=== PATIENT | male | born 2005 | race American Indian/Alaskan Native ===

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

== ENCOUNTER 2025-04-17 19:33 | Emergency (ER) | payer MEDICAID, SELFPAY ==
[2025-04-17 19:35] VITALS: BP 101/63; PULSE 92; RESP 17; TEMP 36.9; O2SAT 96
--- NOTE | 2025-04-17 19:39 | PD.EDSEIZ ---
ED Seizures RME/HPI General Chief Complaint: Seizure Stated Complaint: seizure Time Seen by Provider: 04/17/25 19:37 Arrival date/time: 04/17/25 19:33 Mode of arrival: EMS Limitations: no limitations RME / HPI RME / HPI Narrative: 89-year-old male with history of epilepsy is here today after he had a seizure. He was brought in by EMS. Patient reportedly had a seizure while at home that was witnessed. He also has a headache now. He has blood on his tongue. He states he missed his evening dose of Keppra. Related Data Home Medications ?Medication ?Instructions ?Recorded ?Confirmed levetiracetam 500 mg tablet 3,000 mg PO BID 01/03/20 07/09/24 (Keppra) oxcarbazepine 600 mg tablet 750 mg PO BID 09/24/20 07/09/24 perampanel 12 mg tablet (Fycompa) 12 mg PO HS 07/09/24 07/09/24 Allergies Allergy/AdvReac Type Severity Reaction Status Date / Time No Known Allergies Allergy Verified 07/05/23 00:30 ED Exam General Limitations: Present no limitations General appearance: Present alert and in no apparent distress Head Head exam: Present atraumatic Eye Eye exam: Present normal appearance, PERRL and EOMI ENT ENT exam: Present normal exam, normal oropharynx, mucous membranes moist and other (Dried blood in the oromucosa, no dental injury) Neck Neck exam: Present normal inspection, full ROM and trachea midline Chest Chest inspection: Present normal inspection and symmetric chest wall rise Respiratory Respiratory exam: Present normal lung sounds bilaterally Cardiovascular Cardiovascular exam: Present regular rate, normal rhythm and normal heart sounds Abdominal Exam Abdominal exam: Present soft and normal bowel sounds Extremities Exam Extremities exam: Present normal inspection and full ROM Back Exam Back exam: Present normal inspection and full ROM Neurological Exam Neurological exam: Present alert and oriented X3 Psychiatric Psychiatric exam: Present normal affect and normal mood Skin Skin exam: Present warm, dry, intact and normal color Course Course Course Narrative: At 2001, patient received his dose of Keppra. At 2003, patient had a witnessed seizure that lasted approximately 2 minutes. 4 mg of Ativan was given. Quality Measures none Orders Category Date Time Status IV [Insert IV] NOW Care 04/17/25 20:22 Active CBC Stat Lab 04/17/25 19:52 Completed CMP [Comprehensive Metabolic Panel] Stat Lab 04/17/25 19:52 Completed Acetaminophen Tab [Tylenol Tab] Med 04/17/25 19:40 Discontinued 650 mg PO X1 ONE LORazepam [Ativan Inj] Med 04/17/25 20:09 Discontinued 4 mg IVP X1 ONE LORazepam [Ativan Inj] Med 04/17/25 20:00 Discontinued 6 mg .ROUTE .STK-MED ONE levETIRAcetam INJ [Keppra Inj] Med 04/17/25 20:01 Discontinued 1,000 mg .ROUTE .STK-MED ONE levETIRAcetam [Keppra] Med 04/17/25 19:37 Discontinued 1,000 mg PO X1 ONE Vital Signs Vital signs: Vital Signs Temperature 98.4 F 04/17/25 19:35 Pulse Rate 92 04/17/25 19:35 Respiratory Rate 17 04/17/25 19:35 Blood Pressure 101/63 04/17/25 19:35 Pulse Oximetry (%) 96 04/17/25 19:35 Oxygen Delivery Method Room Air 04/17/25 19:35 Seizure MDM Narrative MDM Narrative:: 89-year-old male with history of epilepsy is here today after he had a seizure. He was brought in by EMS. Patient reportedly had a seizure while at home that was witnessed. He also has a headache now. He has blood on his tongue. He states he missed his evening dose of Keppra. Patient was later moved to an exam room after he was initially evaluated in ambulance bay. At approximately 2000 p.m., patient received 1000 mg of Keppra, approximately 2 to 3 minutes afterwards, patient had a seizure lasted 2 to 3 minutes. He was given 4 mg of Ativan. Serial examinations were performed and patient had no further seizure activity. His mother later arrived and has been at bedside. Patient has been resting comfortably in the emergency room. He will be discharged when he can safely ambulate. Mother states he has a follow-up appointment this month with his neurologist. Patient data External records reviewed:: None Clinical information provided by:: patient, EMS and family Social determinants that could affect healthcare access:: none Patient has the following chronic illnesses:: Epilepsy How is presenting disease/condition affected by chronic disease/condition?: exacerbated by Evaluation data The following diagnostics were reviewed and interpreted by me:: other (specify) Lab and/or radiology exams considered but not ordered:: n/a Interpretation Summary: n/a Medications / Prescriptions Medications or Prescriptions considered but not ordered:: n/a Medication administrations:: Medication Administration History Discontinued Medications Acetaminophen (Acetaminophen 325 Mg Tablet) 650 mg PO X1 ONE Stop: 04/17/25 19:41 Last Admin: 04/17/25 20:14 Dose: Not Given Documented By: ONUR Non-Admin Reason: Unable to Swallow Levetiracetam (Levetiracetam 250 Mg Tablet) 1,000 mg PO X1 ONE Stop: 04/17/25 19:38 Last Admin: 04/17/25 20:02 Dose: 1,000 mg Documented By: ONUR Levetiracetam (Levetiracetam Inj 100 Mg/Ml Vial 5ml) Confirm Administered Dose 1,000 mg .ROUTE .STK-MED ONE Stop: 04/17/25 20:02 Last Admin: 04/17/25 20:23 Dose: Not Given Documented By: ONUR Non-Admin Reason: Override Medication Lorazepam (Lorazepam 2 Mg/Ml Vial) 4 mg IVP X1 ONE Stop: 04/17/25 20:10 Last Admin: 04/17/25 20:06 Dose: 4 mg Documented By: ONUR Lorazepam (Lorazepam 2 Mg/Ml Vial) Confirm Administered Dose 6 mg .ROUTE .STK-MED ONE Stop: 04/17/25 20:01 Last Admin: 04/17/25 20:15 Dose: Not Given Documented By: ONUR Non-Admin Reason: Override Medication See above Consultations Consultation(s) initiated? (list below): No Diagnosis Seizure Differential Diagnosis: generalized seizure, epileptic seizure and status epilepticus Most likely diagnosis given after review of the tests above:: Epilepsy Admission Indicated Admission indicated?: not indicated Admission Request Was there a request for admission?: No Disposition Plan Disposition Plan: Discharge Discharge Attestation Discharge Attestation: The patient and all family members were given an opportunity to ask questions and understood the discharge instructions. Discharge instructions specifically effects, indications for sooner follow up or return to the emergency department, and the expected course of current diagnosis. Patient condition: Stable Discharge Plan Plan Patient Disposition: HOME (Self Care) Patient condition on transfer: Stable Prescriptions/Referrals Prescriptions/Med Rec: No Action oxcarbazepine 600 mg Tablet 750 mg PO BID levetiracetam [Keppra] 500 mg Tablet 3,000 mg PO BID Rx Instructions: Take 3 tab PO in the AM annd 3 tabs PO at night Fycompa 12 mg tablet 12 mg PO HS Patient Comments: TAKE 1 TABLET BY MOUTH EVERY NIGHT Referrals: No Primary/Family,Physician [Primary Care Provider] - In 1 week Problem List Clinical Impression: Epilepsy Patient/Caregiver Discharge Instructions Education Materials: Epilepsy: Safety During a Seizure Additional Instructions: - Continue current medications. - Follow-up with your neurologist as planned. - Return here as needed for any worsening or emergent changes. Print Language: Sami Stand Alone Forms: Gretta Award Info., Patient Portal Info Letter
[2025-04-17 19:45] VITALS: PULSE 96; O2SAT 97
[2025-04-17 19:55] VITALS: BMI 18.0
[2025-04-17 20:00] LABS: Basophils # (Auto) 0.1 Thou/mm3 (0.0-0.2); Basophils % (Auto) 1 % (0-2.5); Eosinophils # (Auto) 0.1 Thou/mm3 (0.0-0.5); Eosinophils % (Auto) 1 % (0-10); Hematocrit 39.4 % (41.0-53.0); Hemoglobin 13.8 g/dL (13.5-16.0); Immature Granulocytes Auto 0.02 Thou/mm3 (0.00-0.00); Lymphocytes # (Auto) 1.4 Thou/mm3 (1.0-5.0); Lymphocytes % (Auto) 20 % (10-50); Mean Corpuscular HGB Conc 35.0 g/dl (31.0-37.0); Mean Corpuscular Hemoglobin 30.7 pg (25.0-35.0); Mean Corpuscular Volume 88 fL (80-100); Monocytes # (Auto) 0.7 Thou/mm3 (0.0-0.8); Monocytes % (Auto) 11 % (0-12); Neutrophils # (Auto) 4.6 Thou/mm3 (1.8-7.7); Neutrophils % (Auto) 67 % (37-80); Nucleated Red Blood Cell # 0.00 Thou/mm3 (0.00-0.00); Nucleated Red Blood Cell % 0 /100 WBC (0); Platelet Count 225 Thou/mm3 (140-440); RDW Standard Deviation 41.4 fL (35.1-43.9); Red Blood Count 4.50 Miln/mm3 (4.50-5.90); White Blood Count 6.9 Thou/mm3 (4.5-11.0)
--- NOTE | 2025-04-17 20:04 | PC.NURSE ---
pt started twitching on left side then started having full body seizure activity.
[2025-04-17] MEDS: LORazepam 2 MG/ML VIAL 4 MG IVP (20:06)
[2025-04-17 20:21] VITALS: BP 147/73; PULSE 108; RESP 18; O2SAT 98
[2025-04-17 20:25] LABS: Alanine Aminotransferase 18 U/L (10-49); Albumin, Serum 4.6 gm/dL (3.5-5.0); Albumin/Globulin Ratio 2.0 (1.2-2.2); Alkaline Phosphatase 65 U/L (46-116); Anion Gap 11 (7-16); Aspartate Amino Transferase 22 U/L (0-34); BUN/Creatinine Ratio 9 Ratio (12-20); Bilirubin,Total 0.3 mg/dL (0.3-1.2); Blood Urea Nitrogen 7 mg/dL (9-23); Calcium 9.3 mg/dL (8.3-10.6); Calcium (Corrected) 9.3 mg/dL (8.5-10.1); Carbon Dioxide 22.5 mMol/L (20.0-31.0); Chloride 112 mMol/L (98-107); Creatinine (Component) 0.8 mg/dL (0.6-1.3); Estimated Creatinine Clearance 103.2 mL/min (>60); Globulin 2.3 gm/dL (2.3-3.5); Glucose 97 mg/dL (74-106); Osmolality,Calculated 286 (275-295); Potassium 3.8 mMol/L (3.4-5.1); Sodium 145 mMol/L (136-145); Total Protein 6.9 gm/dL (5.7-8.2); eGFR > 60 See Note
[2025-04-17 21:19] VITALS: BP 94/56; PULSE 88; RESP 17; TEMP 36.4; O2SAT 99
[2025-04-17 23:55] VITALS: BP 103/59; PULSE 89; RESP 16; TEMP 36.8; O2SAT 97
== END 2025-04-18 00:07 | disposition home or self-care (01) ==
PROVIDERS: Physician Assistant Medical; Emergency Provider Emergency Medicine
DX: G40.909 Epilepsy, unspecified, not intractable, without status epilepticus (principal)
CPT/HCPCS: 36415; 80053; 85025; 96374; 99284; J2060; A9270